=== PATIENT | male | born 1960 | race African-American/Black ===

== ENCOUNTER 2016-12-02 10:32 | Outpatient (CLI) ==
[2014-03-24 16:03] VITALS: BMI 21.5
[2016-12-02 12:39] LABS: BASOPHILS # (AUTO) 0.1 K/uL (0-0.2); BASOPHILS % (AUTO) 0.8 % (0.0-3.0); EOSINOPHILS # (AUTO) 0.2 K/ul (0.0-0.7); EOSINOPHILS % (AUTO) 2.2 % (0.0-7.0); HEMATOCRIT 39.8 % (42.0-52.0); HEMOGLOBIN 13.4 g/dl (14.0-18.0); IMMATURE GRANULOCYTE % (AUTO) 0.3 % (0.0-5.0); LYMPHOCYTES # (AUTO) 2.7 K/uL (0.60-3.4); LYMPHOCYTES % (AUTO) 29.4 (10.0-50.0); MEAN CORPUSCULAR HEMOGLOBIN 30.4 pg (27.0-31.0); MEAN CORPUSCULAR HGB CONC 33.7 (31.8-35.4); MEAN CORPUSCULAR VOLUME 90.2 fl (80.0-94.0); MONOCYTES # (AUTO) 0.5 K/uL (0.4-2.0); NEUTROPHILS # (AUTO) 5.6 K/ul (2.0-6.9); NEUTROPHILS % (AUTO) 62.3; PLATELET COUNT 203 10^3/uL (140-440); RED BLOOD COUNT 4.41 10^6/ul (4.70-6.10); WHITE BLOOD COUNT 9.04 K/ul (4.2-10.2)
[2016-12-02 12:52] LABS: ALBUMIN 4.3 g/dL (3.4-5.0); ALBUMIN/GLOBULIN RATIO 1.3; ANION GAP 14.8; BILIRUBIN,TOTAL 0.37 mg/dL (0.00-1.20); BUN/CREATININE RATIO 9.83; CALCIUM 9.5 mg/dL (8.2-10.2); CHOL/HDL RATIO 6.2 (4.5-6.4); CREATININE 1.22 mg/dL (0.60-1.10); POTASSIUM 3.8 mmol/L (3.5-5.1); TOTAL PROTEIN 7.6 g/dL (6.4-8.2)
== END 2016-12-02 10:33 | disposition home or self-care (01) ==
LOC: LAB 10:32
PROVIDERS: ATTEND Nurse Practitioner Family
DX: R59.0 Localized enlarged lymph nodes (principal); G62.9 Polyneuropathy, unspecified; I10 Essential (primary) hypertension; I73.9 Peripheral vascular disease, unspecified; Z85.72 Personal history of non-Hodgkin lymphomas
CPT/HCPCS: 36415; 80053; 80061; 85025

== ENCOUNTER 2017-11-12 06:12 | Inpatient (IN) | payer OTHER ==
[2017-11-12] MEDS ORDERED: DECADRON 4 MG/ML SDV IM STA (06:28)
[2017-11-12] MEDS ORDERED: DUONEB NEB STA (06:28)
[2017-11-12] MEDS ORDERED: ROBITUSSIN AC SYRUP PO STA (06:28)
--- NOTE | 2017-11-12 06:34 | ED.PDOC ---
General Stated Complaint: Been coughing, congested, sinus drainage,. having shortness of breath, was on Amoxicillin for the dental pain. Time Seen by Physician: 06:33 Mode of Arrival: Walk-In Information Source: Patient Nursing and Triage Documentation Reviewed and Agree: Yes Reviewed sepsis parameters & appropriate labs ordered?: No System Inflammatory Response Syndrome: Not Applicable <ASHOK CRYSTAL - Last Filed: 11/12/17 06:29> <NELLIE VELAZQUEZ - Last Filed: 11/12/17 09:39> ED Provider: Dr. NELLIE VELAZQUEZ Chief Complaint: Respiratory Complaint Primary Care Provider: SONG MCDONALD Sepsis Protocol: For patient's 13 years and over: Temp is 96.8 and below OR 101 and greater Pulse >90 BPM Resp >20/minute Acutely Altered Mental Status Are patient's symptoms suggestive of a new infection, such as: -Pneumonia -Skin, Soft Tissue -Endocarditis -UTI -Bone, Joint Infection -Implantable Device -Acute Abdominal Infection -Wound Infection -Meningitis -Blood Stream Catheter Infection -Unknown Respiratory Complaint Exam - Shortness of Air Complaint/Exam Symptoms Are: Still present Timing: Constant Initial Severity: Moderate Current Severity: Moderate Character: Reports: Dyspnea at rest, Dyspnea on exertion Aggravating: Reports: Allergens, URI Alleviating: Reports: None Associated Signs and Symptoms: Reports: Cough, Nasal congestion. Denies: Wheezing, Chest pain with cough, Chest pain, Fever, Chills, Diaphoresis, Dizziness, Calf pain, Calf swelling, Edema, Rapid breathing, Labored breathing, Decreased intake History of Healthcare-Acquired Pneumonia: No Pulmonary Embolism Risk Factors: Reports: None Cardiac Risk Factors: Reports: None Pseudomonas Risk Factors: Reports: None Tuberculosis Risk Factors: Reports: None Home Oxygen Use: No Recent Stress Test: No Recent Echo/LV Function: No Respiratory Distress: Mild Stridor Present: No Tracheal Deviation: No Subcutaneous Emphysema: No Accessory Muscle Use: No Retractions: Not Present Diminished Breath Sounds: Yes Prolonged Expiratory Phase: No Unable to Speak Full Sentences: No Fatigue: No Leg Swelling: No Jaylan's Sign Present: No Grunting Respirations: No Kussmaul Respirations: No Differential Diagnoses: Pneumonia, Bronchitis <ASHOK CRYSTAL - Last Filed: 11/12/17 06:29> - Respiratory Complaint/Exam Symptoms Are: Still present Timing: Constant Initial Severity: Moderate Current Severity: Moderate Location: Chest Character: Reports: Productive cough (White Phlegm) Aggravating: Reports: None Alleviating: Reports: Upright position Associated Signs and Symptoms: Reports: Dyspnea, URI, Nasal congestion, Sore throat. Denies: Rapid breathing, Fever, Chills, Chest pain, Pleuritic chest pain, Wheezing, Hemoptysis, Dizziness, Calf pain, Calf swelling, Edema, Sinus discomfort, Vomiting, Weight loss, Decreased oral intake, Increased thirst, Increased appetite, Increased urination Related History: Denies: Similar episode Related Surgical History: Reports: None Pulmonary Embolism Risk Factors: None Cardiac Risk Factors: Reports: None Pseudomonas Risk Factors: Reports: None Tuberculosis Risk Factors: Reports: None Status Asthmaticus Risk Factors: Reports: None Home Oxygen Use: No Accessory Muscle Use: No Diminished Breath Sounds: No Sinus Tenderness: None Grunting Respirations: No Kussmaul Respirations: No Differential Diagnoses: Mycoplasma, URI, Influenza, Other (pharyngitis) <NELLIE VELAZQUEZ - Last Filed: 11/12/17 09:39> Review of Systems - Review Of Systems Constitutional: Reports: Malaise, Weakness Eyes: Reports: No symptoms Ears, Nose, Mouth, Throat: Reports: No symptoms Respiratory: Reports: Cough, Short of air Cardiac: Reports: No symptoms GI: Reports: No symptoms : Reports: No symptoms Musculoskeletal: Reports: No symptoms Skin: Reports: No symptoms Neurological: Reports: No symptoms Endocrine: Reports: No symptoms Hematologic/Lymphatic: Reports: No symptoms All Other Systems: Reviewed and Negative <ASHOK CRYSTAL - Last Filed: 11/12/17 06:29> Past Medical History - Past Medical History Previously Healthy: Yes Endocrine: Reports: None Cardiovascular: Reports: Hypertension Respiratory: Reports: None Hematological: Reports: None Gastrointestinal: Reports: None Genitourinary: Reports: None Neuro/Psych: Reports: None Musculoskeletal: Reports: None Cancer: Reports: None - Surgical History General Surgical History: Reports: None - Family History Family History: Reports: None - Social History Smoking Status: Current some day smoker Smoking Cessation Counseling Time: > 3 min - 10 min Hx Substance Use: Yes (20 YEARS AGO) Alcohol Screening: None - Immunizations Tetanus Shot up to Date: No <ASHOK CRYSTAL - Last Filed: 11/12/17 06:29> Physical Exam - Physical Exam Appearance: Ill-appearing Eyes: DONNY, EOMI, Conjunctiva clear ENT: Ears normal, Nose normal, Oropharynx normal Respiratory: Airway patent, Breath sounds clear, Breath sounds equal, Respirations nonlabored Cardiovascular: RRR, Pulses normal, No rub, No murmur GI/: Soft, Nontender, No masses, Bowel sounds normal, No Organomegaly Musculoskeletal: Normal strength, ROM intact, No edema, No calf tenderness Skin: Warm, Dry, Normal color Neurological: Sensation intact, Motor intact, Reflexes intact, Cranial nerves intact, Alert, Oriented Psychiatric: Affect appropriate, Mood appropriate <ASHOK CRYSTAL - Last Filed: 11/12/17 06:29> Physician Notification - Case Discussed Physician Notified: Dr Crystal aat 0930 of results and recommendation to admit patient Time of Notification: 09:30 (Concurs with admission) <NELLIE VELAZQUEZ - Last Filed: 11/12/17 09:39> Critical Care Note - Critical Care Note Total Time (mins): 30 <ASHOK CRYSTAL - Last Filed: 11/12/17 06:29> Course - Course Hematology/Chemistry: 11/12/17 06:43 11/12/17 06:43 <NELLIE VELAZQUEZ - Last Filed: 11/12/17 09:39> - Course Orders, Labs, Meds: Lab Review 11/12/17 11/12/17 11/12/17 06:35 06:43 06:43 WBC 8.51 RBC 4.22 L Hgb 12.9 L Hct 37.4 L MCV 88.6 MCH 30.6 MCHC 34.5 RDW Coeff of Corin 13.5 Plt Count 129 L Immature Gran % (Auto) 0.2 Neut % (Auto) 63.6 Lymph % (Auto) 26.4 Imperial % (Auto) 7.3 Eos % (Auto) 2.0 Baso % (Auto) 0.5 Immature Gran # (Auto) 0.0 Neut # (Auto) 5.4 Lymph # (Auto) 2.3 Imperial # (Auto) 0.6 Eos # (Auto) 0.2 Baso # (Auto) 0.0 Puncture Site L radial O2 Saturation 85.0 L ABG pH 7.350 ABG pCO2 31.4 L ABG pO2 52.0 L* ABG HCO3 17.4 L ABG Total CO2 18 L ABG Base Excess -8 L David Test + O2 Delivery Device Oxygen Liter Flow FiO2 % 21.0 Sodium 140 Potassium 4.2 Chloride 110 H Carbon Dioxide 18 L Anion Gap 16.2 BUN 8 Creatinine 1.35 H Estimated GFR (MDRD) 66.00 BUN/Creatinine Ratio 5.92 Glucose 102 H Calcium 8.9 Total Bilirubin 0.6 AST 39 H ALT 25 Alkaline Phosphatase 94 Total Creatine Kinase 1246 CK-MB (CK-2) 5.8 H* CK-MB (CK-2) % 0.70420 Troponin I < 0.0100 B-Natriuretic Peptide Total Protein 7.3 Albumin 3.9 Globulin 3.4 Albumin/Globulin Ratio 1.15 Influ A Molecular Assay Influ B Molecular Assay 11/12/17 11/12/17 11/12/17 06:43 07:33 08:36 WBC RBC Hgb Hct MCV MCH MCHC RDW Coeff of Corin Plt Count Immature Gran % (Auto) Neut % (Auto) Lymph % (Auto) Imperial % (Auto) Eos % (Auto) Baso % (Auto) Immature Gran # (Auto) Neut # (Auto) Lymph # (Auto) Imperial # (Auto) Eos # (Auto) Baso # (Auto) Puncture Site R rad O2 Saturation 87.0 L ABG pH 7.38 ABG pCO2 27.0 L ABG pO2 53.0 L* ABG HCO3 16 L ABG Total CO2 17 L ABG Base Excess -9 L David Test + O2 Delivery Device Nc Oxygen Liter Flow 2.00 FiO2 % 28.0 Sodium Potassium Chloride Carbon Dioxide Anion Gap BUN Creatinine Estimated GFR (MDRD) BUN/Creatinine Ratio Glucose Calcium Total Bilirubin AST ALT Alkaline Phosphatase Total Creatine Kinase CK-MB (CK-2) CK-MB (CK-2) % Troponin I B-Natriuretic Peptide < 10 Total Protein Albumin Globulin Albumin/Globulin Ratio Influ A Molecular Assay Negative by naat Influ B Molecular Assay Negative by naat Orders Category Date Time Status ABG DRAW REQUEST Stat CARDIO 11/12/17 06:35 Completed ABG DRAW REQUEST Stat CARDIO 11/12/17 08:36 Completed EKG-(ED ONLY) Stat CARDIO 11/12/17 06:35 Completed NEBULIZER TREATMENT Stat CARDIO 11/12/17 06:28 Completed NEBULIZER TREATMENT Stat CARDIO 11/12/17 08:34 Completed ABG Stat LAB 11/12/17 06:35 Completed ABG Stat LAB 11/12/17 08:36 Completed BLOOD CULTURE (ED ONLY) Stat LAB 11/12/17 09:25 Ordered BNP [B-TYPE NATRIURETIC PEPTIDE] Stat LAB 11/12/17 06:43 Completed CBC W/ AUTO DIFF Stat LAB 11/12/17 06:43 Completed COMPREHENSIVE METABOLIC PANEL Stat LAB 11/12/17 06:43 Completed CREATINE KINASE Stat LAB 11/12/17 06:43 Completed FLU A & B MOLECULAR [FLU A/B MOLECULAR] Stat LAB 11/12/17 07:33 Completed LACTIC ACID Stat LAB 11/12/17 09:26 Ordered M. PNEUMONIA IgG/IgM ABS Stat LAB 11/12/17 06:43 Received RAPID STREP SCREEN [MOLECULAR GROUP A STREP] Stat LAB 11/12/17 07:33 Completed TROPONIN I Stat LAB 11/12/17 06:43 Completed Budesonide [Pulmicort 0.5 mg/2 ml] MEDS 11/12/17 08:33 Discontinued 1 vial NEB ONCE STA Dexamethasone 4 mg/ml Inj [Decadron 4 mg/ml Sdv] MEDS 11/12/17 06:28 Discontinued 4 mg IM ONCE STA Guaifenesin/Codeine Phosphate [Robitussin AC Syrup] MEDS 11/12/17 06:28 Discontinued 5 ml PO ONCE STA Ipratropium/Albuterol Neb [Duoneb] MEDS 11/12/17 06:28 Discontinued 1 vial NEB ONCE STA Levalbuterol HCl [Xopenex 1.25 mg] MEDS 11/12/17 08:33 Discontinued 1 vial NEB ONCE STA CHEST, 2 VIEWS PA & LAT Stat RADS 11/12/17 06:28 Completed Medications Discontinued Medications Generic Name Dose Route Start Last Admin Trade Name Freq PRN Reason Stop Dose Admin Albuterol/Ipratropium 1 vial 11/12/17 06:28 11/12/17 07:00 Duoneb NEB 11/12/17 06:29 1 vial ONCE STA Administration Budesonide 1 vial 11/12/17 08:33 11/12/17 09:00 Pulmicort 0.5 Mg/2 Ml NEB 11/12/17 08:34 1 vial ONCE STA Administration Dexamethasone Sodium Phosphate 4 mg 11/12/17 06:28 11/12/17 06:35 Decadron 4 Mg/Ml Sdv IM 05/03/18 06:29 4 mg ONCE STA Administration Guaifenesin/Codeine Phosphate 5 ml 11/12/17 06:28 11/12/17 06:36 Robitussin Ac Syrup PO 11/12/17 06:29 5 ml ONCE STA Administration Levalbuterol HCl 1 vial 11/12/17 08:33 11/12/17 09:00 Xopenex 1.25 Mg NEB 11/12/17 08:34 1 vial ONCE STA Administration Vital Signs: Temp Pulse Resp BP Pulse Ox 11/12/17 06:12 98.3 F 94 H 20 133/82 93 L Departure - Departure Pt referred to PMD for follow-up: Yes IPMP verified?: No Disposition Discussed With: Patient <ASHOK CRYSTAL - Last Filed: 11/12/17 06:29> - Departure Time of Disposition: 09:35 Disposition Discussed With: Patient, Family (Dr Crystal concurs with admission. Patient agrees to admission ) <NELLIE VEALZQUEZ - Last Filed: 11/12/17 09:39> - Departure Disposition: ADMITTED INPATIENT Discharge Problem: URTI (acute upper respiratory infection), Cough in adult patient, Hypoxemia Instructions: Upper Respiratory Infection (ED) Condition: Fair Allergies/Adverse Reactions: Allergies No Known Allergies Allergy (Verified 11/12/17 06:24) Home Medications: Ambulatory Orders Baby Aspirin 81 mg PO DAILY 12/21/14 Acetazolamide 500 mg PO DAILY 02/21/16 Pregabalin [Lyrica] 150 mg PO BID 12/02/16 Acetazolamide [Diamox] 500 mg PO DAILY 11/12/17 Amoxicillin 875 mg PO BID 11/12/17 ED Physician Progress Note <ASHOK CRYSTAL - Last Filed: 11/12/17 06:29> <NELLIE VELAZQUEZ - Last Filed: 11/12/17 09:39> ED Physician Progress Note: [] 11/12/17 07:05 Assumed management of this patient who is currently undergoing diagnostic evaluation for evaluation of persistent cough and respiratory congestion. Hx of being previously prescribed Amoxicillin for dental problem which has not beneficial for his respiratory complaints. Initial ABG PH 7.350, PO2 52, PCO2 31.4 O2 Sat Rm air 85 %, HCO3 17.4 Total CO2 18 . CXR pending. Lab testing obtained; Results on chart. 11/12/17 08:38 Diagnostic Testing reviewed. CXR neg for infiltrated or pneumonia.Patient with persistent paroxysmal coughing with white sputum production periodically.O2 Stat 95 % on 2 L Obtain additional Lab and administer additional RT therapy. (NELLIE VELAZQUEZ)
--- NOTE | 2017-11-12 08:05 | DI ---
EXAM: Two views of the chest. History: Cough. Comparison: Chest radiograph 07/14/2014, chest CT 07/14/2014 Findings: Apical predominant emphysema. No focal consolidation. No appreciable pleural fluid and n o pneumothorax. No acute osseous abnormalities. Heart size is normal. Impression: No acute cardiopulmonary process. Apical predominant emphysema.
[2017-11-12] MEDS ORDERED: PULMICORT 0.5 MG/2 ML NEB STA (08:33)
[2017-11-12] MEDS ORDERED: XOPENEX 1.25 MG NEB STA (08:33)
[2017-11-12] MEDS ORDERED: TUSSIONEX PO STA (08:34)
[2017-11-12] MEDS ORDERED: LEVAQUIN 750 MG in PREMIX 150 ML D5W 1 BAG IV STA (09:33)
[2017-11-12] MEDS ORDERED: DUONEB NEB PRN (09:40)
[2017-11-12] MEDS ORDERED: ZOFRAN 4 MG/2 ML IVP PRN (09:40)
[2017-11-12] MEDS ORDERED: TYLENOL PO PRN (09:40)
[2017-11-12] MEDS ORDERED: XOPENEX 0.63 MG NEB PRN (09:40)
[2017-11-12] MEDS ORDERED: LEVAQUIN 150 ML IV ONE (09:59)
[2017-11-12 11:15] VITALS: BMI 23.5
[2017-11-12] MEDS: SOLU-MEDROL 125 MG IVP SCH ×2 (12:08→21:23)
[2017-11-12] MEDS: ASPIRIN EC PO SCH (12:09)
[2017-11-12] MEDS: DIAMOX PO SCH (12:09)
[2017-11-12] MEDS: ROBITUSSIN AC SYRUP PO PRN ×2 (12:09→19:58)
[2017-11-12] MEDS: LYRICA PO SCH ×2 (12:11→21:27)
[2017-11-12] MEDS: LOVENOX SUBCUT SCH (12:12)
--- NOTE | 2017-11-12 14:16 | CT ---
EXAM: CT chest without contrast HISTORY: Shortness of breath COMPARISON: CT chest 07/14/2014 TECHNIQUE: Serial axial images of the chest were obtained from the lung apices to the upper abdomen without contrast. These were viewed in multiple planes. FINDINGS: The thyroid is normal. The visualized vessels are unremarkable without aneurysm or stenos is. The heart is normal in size without pericardial effusion. There are no pathologically enlarged mediastinal or hilar lymph nodes. Calcified mediastinal and right hilar lymph nodes are present. There is no pneumothorax or pleural effusion. There is hazy ground-glass in the right upper lobe, ne w since prior CT with unchanged emphysematous disease. Ground-glass correlates with findings on ches t x-ray. There is a pulmonary nodule in contact with the pleura in the superior segment of the right lower lobe measuring 0.8 x 0.6 cm. There are calcified granulomas present. There is scattered cent ral lobular ground-glass throughout the lungs bilaterally. There is a 0.8 cm pulmonary nodule in the medial left upper lobe on image 12. There is a 0.5 cm pulmonary nodule in the left upper lobe which has increased since 2015. There is a 0.9 cm pulmonary nodule in the anterior left upper lobe on kianna ge 21 which has increased in size in comparison to 2015. Patchy ground-glass throughout the left danette g. Central airways are patent. Soft tissues in the upper abdomen are unremarkable. The osseous structures demonstrate no fracture, lytic or blastic lesion. IMPRESSION: 1. Multiple pulmonary nodules which have increased in size compared to 2015. These may represent ne oplasm. Tissue sampling versus PET CT may be obtained to further evaluate. 2. Patchy ground-glass opacities and central lobular ground-glass suggestive of small airways inflam mation/infection. 3. Mild emphysema.
[2017-11-12] MEDS: TESSALON PERLES PO SCH ×2 (17:03→21:23)
[2017-11-12] MEDS ORDERED: ROCEPHIN ONE (18:50)
[2017-11-12] MEDS: ROCEPHIN 1 GM in SODIUM CHLORIDE 50 ML IV SCH (18:54)
[2017-11-12] MEDS: SODIUM CHLORIDE 1,000 ML IV SCH (18:56)
[2017-11-12] MEDS ORDERED: ALBUTEROL 0.083% NEB NEB STA (19:52)
[2017-11-12] MEDS ORDERED: XOPENEX 0.63 MG NEB SCH (20:00)
[2017-11-12] MEDS ORDERED: MUCINEX DM ER 600-30 MG TABLET PO SCH (21:00)
[2017-11-12] MEDS ORDERED: NON-FORMULARY MEDICATION (Pregabalin [Lyrica] 150 MG) PO SCH (21:00)
[2017-11-12] MEDS: XOPENEX 1.25 MG NEB SCH (22:52)
[2017-11-13] MEDS: ROBITUSSIN AC SYRUP PO PRN ×3 (03:12→17:36)
[2017-11-13] MEDS: XOPENEX 1.25 MG NEB SCH ×4 (05:04→22:21)
[2017-11-13] MEDS: SOLU-MEDROL 125 MG IVP SCH ×3 (05:24→21:11)
[2017-11-13] MEDS: ROCEPHIN 1 GM in SODIUM CHLORIDE 50 ML IV SCH (08:52)
[2017-11-13] MEDS: LOVENOX SUBCUT SCH (08:52)
[2017-11-13] MEDS ORDERED: ACETAZOLAMIDE 500 MG PO SCH (09:00)
[2017-11-13] MEDS ORDERED: BABY ASPIRIN PO SCH (09:00)
--- NOTE | 2017-11-13 09:46 | CT ---
EXAM: CTA of the chest. History: Cough, short of breath, follow-up lung nodules. Comparison: Chest CT 11/12/2017 Technique: Multiplanar CT images through the thorax were obtained following administration of IV con trast. MIP images and 3-D reconstructions were also acquired. Findings: Heart size is normal. No pericardial effusion. Great vessels are unremarkable. No patho logically enlarged thoracic lymph nodes. No pulmonary arterial filling defects. No change in the patc hy bilateral ground-glass infiltrates. No appreciable pleural fluid and no pneumothorax. Apical pre dominant emphysema again noted. No change in the bilateral pulmonary nodules as described on chest C T done yesterday. No developing lung nodules. Within the visualized upper abdomen, no acute findings. The visualized osseous structures unchanged with no acute osseous abnormalities identified. Impression: 1. No pulmonary embolism. 2. No change in the bilateral ground-glass infiltrates compatible with pneumonia. 3. No change in the bilateral lung nodules as described on chest CT done yesterday. Recommend furth er evaluation with PET CT or tissue sampling. 4. Emphysema
[2017-11-13] MEDS: LEVAQUIN 750 MG in PREMIX 150 ML D5W 1 BAG IV SCH (10:19)
[2017-11-13] MEDS: TESSALON PERLES PO SCH ×3 (10:20→20:25)
[2017-11-13] MEDS: DIAMOX PO SCH (10:20)
[2017-11-13] MEDS: LYRICA PO SCH ×2 (10:20→20:25)
[2017-11-13] MEDS: ASPIRIN EC PO SCH (10:20)
[2017-11-13] MEDS ORDERED: MYLANTA SUSP PO PRN (12:29)
[2017-11-13] MEDS ORDERED: MYLANTA SUSP PO SCH (13:00)
[2017-11-13] MEDS: SODIUM CHLORIDE 1,000 ML IV SCH (17:03)
[2017-11-14] MEDS: SOLU-MEDROL 125 MG IVP SCH ×2 (04:51→14:11)
[2017-11-14] MEDS: XOPENEX 1.25 MG NEB SCH ×2 (04:58→11:13)
[2017-11-14] MEDS: LOVENOX SUBCUT SCH (08:49)
[2017-11-14] MEDS: ROCEPHIN 1 GM in SODIUM CHLORIDE 50 ML IV SCH (08:49)
[2017-11-14] MEDS: TESSALON PERLES PO SCH (08:49)
[2017-11-14] MEDS: LYRICA PO SCH (08:49)
[2017-11-14] MEDS: ASPIRIN EC PO SCH (08:49)
[2017-11-14] MEDS: DIAMOX PO SCH (08:49)
[2017-11-14] MEDS: LEVAQUIN 750 MG in PREMIX 150 ML D5W 1 BAG IV SCH (10:41)
[2017-11-14 13:14] VITALS: BP 116/70; TEMP 98
--- NOTE | 2017-11-16 10:02 | HP ---
DATE OF SERVICE: 11/12/17 HISTORY OF PRESENT ILLNESS: Respiratory complaint with cough and congestion, clear to yellow phlegm 3 to 4 days, runny nose with low grade fever, temperature 99.9, constant cough, is feeling tight, sore throat and bodyaches. The patient came to the emergency room , saturation was low. He was seen by Dr. Novak in the emergency room. White count was normal. Hemoglobin 12.9, D. dimer 592. ABGs showed pH 7.350, pc02 31.4 , p02 52. Chest x-ray was negative for infiltrates so CT chest was done showing multiple pulmonary nodules which have increased in size compared to 2015. These may represent neoplasm. Tissue sampling was needed. Patchy ground glass opacities and central lobular ground glass suggestive of small airway inflammation and infection, mild emphysema. At that time, the patient is admitted to the hospital, started on IV antibiotics and breathing treatment. REVIEW OF SYSTEMS: CONSTITUTIONAL: Weakness, tiredness. No fever, no chills. HEENT: Normal. ENDOCRINE: No weight gain; no weight loss. CVS: No chest pain. No PND, no orthopnea. No shortness of breath. No PND, no orthopnea. RESPIRATORY: Cough and congestion. No hemoptysis. GI: No nausea, no vomiting. No abdominal pain. No melena. : No hematuria. No polyuria. MUSCULOSKELETAL: No joint swelling. PSYCHIATRIC: Not anxious. No depression. No suicidal thoughts. No homicidal thoughts. SKIN: Intact, no open lesions. PAST MEDICAL HISTORY: 1. History of brain shunt 2. COPD 3. Sickle cell disease 4. Bradycardias 5. The patient did have some type of blood cancer, which he does not remember but was taking chemotherapy at [facility]. PAST SURGICAL HISTORY: 1. Glaucoma PERSONAL HISTORY: The patient does smoke. No alcohol. No drugs. FAMILY HISTORY: High blood pressure. MEDICATIONS: (HOME) Aspirin Acetazolamide Lyrica Diamox Amoxicillin ALLERGIES: NKDA PHYSICAL EXAMINATION: V/S: BP 118/78, respiratory rate 24, heart rate 68, temperature 98.4, saturation 98 on 2L. HEENT: Atraumatic, normocephalic. No scleral icterus. Pallor positive. Mucosa dry. NECK: Supple. No JVD, no bruit. No lymphadenopathy. No thyromegaly. HEART: S1, S2 normal. No murmur. No cyanosis or clubbing. No ascites. LUNGS: Decreased with basilar crackles. No rales or rhonchi. ABDOMEN: Soft, nontender. Bowel sounds are active. No CVA tenderness. No rigidity or guarding. EXTREMITIES: No pedal edema. No cyanosis or clubbing MUSCULOSKELETAL: Normal joints, no swelling. NEUROLOGIC: The patient is awake and alert. SKIN: Intact; no open lesions. LYMPHATIC: No lymph nodes palpable. LABS: White count 8.51, hemoglobin 12.9, hematocrit 37.4, platelet count 129. D. dimer 592. ABG pH 7.350, pc02 31.4, p02 52. Sodium 140, potassium 4.2, chloride 110, bicarb 18, BUN 8, creatinine 1.35, glucose 102. CK-MB 5.8. ASSESSMENT: 1. HYPOXEMIC RESPIRATORY FAILURE 2. UPPER RESPIRATORY INFECTION 3. NODULAR DENSITIES IN THE LUNG, WHICH NEED FURTHER EVALUATION 4. SICKLE CELL DISEASE PLAN: 1. Admit patient to the regular floor. 2. Start Solu-Medrol, Mucinex, Lovafloxin. 3. IV fluids. 4. Daily I & O. TIME SPENT: MORE THAN 75 minutes MTDD
--- NOTE | 2017-11-16 10:04 | DS ---
DATE OF SERVICE: 11/14/17 FINAL DIAGNOSIS: 1. Hypoxemic respiratory failure 2. Upper respiratory infection 3. Nodular densities in the lung, needs further evaluation. Will get pulmonary consultation as outpatient. 4. History of blood cancer 5. Sickle cell anemia/Sickle cell disease DISCHARGE INSTRUCTIONS: Discharge the patient home. Continue home medication. MEDICATIONS AT DISCHARGE: Diamox Baby aspirin Lyrica Tylenol PRN NEW PRESCRIPTIONS: Keflex 500mg twice a day Prednisone 500mg twice a day DIET INSTRUCTIONS: Cardiac and healthy ACTIVITY: As much as tolerated DISEASE SPECIFIC EDUCATION: Lung nodules and mass History of smoking Previous history of blood cancer. The patient is at very high risk of having tumor, this was discussed with the patient and his in detail at request of the patient come to followups so that we can put the patient was degreaser verbalized understanding. HOSPITAL COURSE: Chucho Espinoza who is a 57 year old male came to the emergency room with cough and congestion, found to have hypoxemia. ABG done which showed the pH 7.350, pCo2 31.4, pO2 52. CT chest showed the multiple nodules and infiltrates and inflammation/infection. At that time the patient was admitted with the hypoxemic respiratory failure, upper respiratory infection,nodules in the lung. Started on the Levaquin, Solu-Medrol and breathing treatments. D-Dimer was more than 500. Given hypoxemia and nodular densities CT chest with PE protocol was obtained which did not show any mass. Bilateral ground glass infiltrates compatible with pneumonia,further evaluation with PET scan and emphysema is seen. At that time the patient was continued with IV antibiotics, breathing treatments, Solu-Medrol and with the given treatment the patient was up and about walking and did not have any problem. Repeat ABG done showed pH 7.365, pCO2 29.3, pO2 68. Up and about walking and did not have any problem. Hgb and hct was stable. BUN and creatinine is stable. WBC went up to 20,000 most likely from the steroid reaction. Clinically the patient is up and about walking and did not have any problem. At that time patient was discussed clearly with the findings in the CT scan of the chest and informed that he definitely needs further evaluation and verbalized understanding. At that time the patient being discharged home. TIME SPENT: MORE THAN 55 MINUTES MTDD
--- NOTE | 2017-11-16 10:12 | PN ---
DATE OF SERVICE: 11/13/17 SUBJECTIVE: The patient is admitted with upper respiratory infection and nodules in the lung , cough and congestion. Cough medication is helping. No fever, no chills. Repeat ABGs done yesterday evening showed pH 7.438, pc02 27, p02 53. D.dimer 592. In view of the elevated D. dimer and questionable nodules in the lung, will get CT chest with PE protocol which was discussed with the patient. The patient did say if he did have some kind of blood cancer for which he use to get chemotherapy in [place]. He still goes to oncologist at [place] and he gave us the information which has been documented. REVIEW OF SYSTEMS: CONSTITUTIONAL: No fever, no chills. HEENT: Normal. ENDOCRINE: No weight gain, no weight loss. CVS: No angina symptoms. No CHF symptoms. No palpitations. No atypical chest pain for CAD. No shortness of breath. No PND, no orthopnea. RESPIRATORY: Cough and congestion. GI: No nausea, no vomiting. No abdominal pain. : No hematuria. No polyuria. MUSCULOSKELETAL: No joint swelling. PSYCHIATRIC: Not anxious. No depression. No suicidal thoughts. No homicidal thoughts. SKIN: Intact. No rash. PHYSICAL EXAMINATION: V/S: BP 120/79, respiratory rate 20, heart rate 85, temperature 98.1. Saturation 97 on 2L. HEENT: Normocephalic, atraumatic. Mucosa dry. Pallor positive. No icterus. NECK: Supple. No JVD, no carotid bruit. No lymphadenopathy. LUNGS: Decreased with basilar crackles. No rales or rhonchi. HEART: S1, S2 normal. No S3. No murmur, gallop or regurgitation. ABDOMEN: Soft, nontender. Bowel sounds active. No rigidity. No rebound or guarding. No CVA tenderness. EXTREMITIES: No pedal edema. No clubbing or cyanosis MUSCULOSKELETAL: No joint swelling. NEUROLOGIC: Awake, alert, oriented times three. No focal deficit. LYMPHATIC: No lymph nodes palpable. SKIN: Intact. LABS: Sodium 138, potassium 3.8, chloride 111, bicarb 14, BUN 13, creatinine 1.09, glucose 166. White count 8.95, hemoglobin 11.7, hematocrit 33.2, platelet count 136. ASSESSMENT: 1. HYPOXEMIC RESPIRATORY FAILURE 2. NODULAR DENSITIES IN THE LUNG 3. HISTORY OF BLOOD CANCER, THE PATIENT DOES NOT KNOW EXACTLY WHAT KIND 4. SICKLE CELL DISEASE/ANEMIA PLAN: 1. CT scan with PE protocol. 2. Continue Levaquin, Solu-Medrol, Duonebs. 3. Robitussin and Tessalon Perle. 4. Out of bed to chair. 5. Activity as tolerated. TIME SPENT: More than 35 minutes MTDD
== END 2017-11-14 16:30 | disposition home or self-care (01) | DRG 152 ==
LOC: ED 06:12 → MEDSURG A 10:16
PROVIDERS: ADMIT Emergency Medicine; ATTEND Emergency Medicine
DX: J06.9 Acute upper respiratory infection, unspecified (principal); J96.91 Respiratory failure, unspecified with hypoxia; R91.8 Other nonspecific abnormal finding of lung field; R06.02 Shortness of breath; R79.1 Abnormal coagulation profile; J43.9 Emphysema, unspecified; D57.1 Sickle-cell disease without crisis; F17.210 Nicotine dependence, cigarettes, uncomplicated; R05 Cough; Z85.6 Personal history of leukemia; Z79.899 Other long term (current) drug therapy
CPT/HCPCS: 36415; 80048; 80053; 82550; 82553; 82803; 82962; 83605; 83880; 84484; 85025; 85379; 85610; 86738; 87040; 87502; 87651; 93005; 93010; 94640; 96365; 96372; 99284

== ENCOUNTER 2018-05-17 12:51 | Outpatient (CLI) | END 2018-05-17 12:52 | disposition home or self-care (01) | LOC: RHC-LAB 12:51 | PROVIDERS: ATTEND Nurse Practitioner Family | DX: D57.1 Sickle-cell disease without crisis (principal); I10 Essential (primary) hypertension; E78.5 Hyperlipidemia, unspecified; E78.1 Pure hyperglyceridemia; Z12.5 Encounter for screening for malignant neoplasm of prostate | CPT/HCPCS: 36415; 80053; 80061; 84443; 85025 ==

== ENCOUNTER 2018-08-30 09:06 | Outpatient (CLI) | payer OTHER | END 2018-08-30 09:07 | disposition home or self-care (01) | LOC: RHC-LAB 09:06 | PROVIDERS: ATTEND Nurse Practitioner Family | DX: E78.5 Hyperlipidemia, unspecified (principal); E78.1 Pure hyperglyceridemia; Z86.79 Personal history of other diseases of the circulatory system; C85.90 Non-Hodgkin lymphoma, unspecified, unspecified site | CPT/HCPCS: 36415; 80053; 80061; 84403; 85025 ==

== ENCOUNTER 2018-11-09 06:08 | Outpatient (CLI) | END 2018-11-09 06:09 | disposition home or self-care (01) | LOC: LAB 06:08 | PROVIDERS: ATTEND Nurse Practitioner Family | DX: E78.5 Hyperlipidemia, unspecified (principal) | CPT/HCPCS: 36415; 80053; 80061 ==